=== PATIENT | female | born 1950 | race Caucasian/White ===

== ENCOUNTER 2016-08-02 09:27 | Emergency (ER) | payer MEDICARE ==
[2016-08-02 09:41] VITALS: BP 143/64
--- NOTE | 2016-08-02 10:44 | UC ---
Psychiatric Complaint HPI - HPI Summary HPI Summary: SEVER ANXIETY X 2 MONTHS , GETTING WORSE OVER THE PAST WEEK. - History Of Current Complaint Chief Complaint: UCGeneralIllness Stated Complaint: ANXIETY Time Seen by Provider: 08/02/16 09:32 Hx Obtained From: Patient Hx Last Menstrual Period: n/a Onset/Duration: Gradual Onset, Lasting Weeks - 8, Still Present Timing: Constant Severity Initially: Moderate Severity Currently: Severe Character: Depressed, Anxious Aggravating Factor(s): Recent Stress Alleviating Factor(s): Nothing Associated Signs And Symptoms: Negative Related History: Positive For: Prior Psychiatric Issues - DEPRESSION - Allergies/Home Medications Allergies/Adverse Reactions: Allergies Allergy/AdvReac Type Severity Reaction Status Date / Time Sulfamethoxazole Allergy Intermediate Hives Verified 11/24/15 18:46 w/Trimethoprim [From Bactrim] Home Medications: Home Medications Fluticasone Propionate (Nasal) [Flonase Allergy Relief] 08/02/16 [History] Multiple Vitamin [Multi Vitamin] 08/02/16 [History] traZODone TAB* [Desyrel TAB*] 08/02/16 [History] PMH/Surg Hx/FS Hx/Imm Hx Psychological History Of: Reports: Anxiety, Depression - Surgical History Surgical History: Yes Surgery Procedure, Year, and Place: LEFT 5TH FINGER SURGERY. hysterectomy/ bladder repair. tonsillectomy. tubal ligation - Family History Known Family History: Positive: None - Social History Alcohol Use: None Alcohol Amount: recovery for 21 years Substance Use Type: None Smoking Status (MU): Never Smoked Tobacco - Immunization History Most Recent Influenza Vaccination: 2014 Most Recent Pneumonia Vaccination: 2014 Review of Systems Constitutional: Negative Skin: Negative Eyes: Negative ENT: Negative Respiratory: Negative Psychological: Anxious, Depressed All Other Systems Reviewed And Are Negative: Yes Physical Exam Triage Information Reviewed: Yes Appearance: Well-Appearing, No Pain Distress, Well-Nourished Vital Signs: Initial Vital Signs Temp 98.0 F 08/02/16 09:33 Pulse 74 08/02/16 09:33 Resp 16 08/02/16 09:33 BP 143/64 08/02/16 09:33 Pulse Ox 99 08/02/16 09:33 Vital Signs Reviewed: Yes Eyes: Positive: Conjunctiva Clear ENT: Positive: Normal ENT inspection, Hearing grossly normal, Pharynx normal Neck exam: Normal Neck: Positive: Supple, Nontender, No Lymphadenopathy Respiratory Exam: Normal Respiratory: Positive: Chest non-tender, Lungs clear, Normal breath sounds, No respiratory distress Cardiovascular: Positive: RRR, No Murmur, Pulses Normal Abdominal Exam: Normal Psychological Exam: Normal Psychological: Positive: Age Appropriate Behavior Skin Exam: Normal UC Physical Exam Vital Signs On Initial Exam: Initial Vitals Temp Pulse Resp BP Pulse Ox 98.0 F 74 16 143/64 99 08/02/16 09:33 08/02/16 09:33 08/02/16 09:33 08/02/16 09:08/02/16 09:33 - Psychiatric Exam Psychiatric: Anxious, Depressed Mood: Depressed Appearance: Depressed Thought Process: Logical Memory: Intact Judgement: Normal Patient Medically Stable for Psych Evaluation/Referral/Trans: Yes Psych Complaint Course/Dx - Differential Dx/Diagnosis Provider Diagnoses: ANXIETY Discharge - Discharge Plan Condition: Stable Disposition: HOME Prescriptions: Escitalopram Oxalate [Lexapro] 10 mg PO DAILY WITH MEAL #30 tab hydrOXYzine PAMOATE CAP* [Vistaril CAP*] 25 mg PO Q8H PRN #30 cap PRN Reason: Anxiety Patient Education Materials: Anxiety (ED) Referrals: Octavia Pitts [Primary Care Provider] - As Soon As Possible
== END 2016-08-02 10:08 | disposition home or self-care (01) ==
LOC: UCCORT 09:27
DX: F41.9 Anxiety disorder, unspecified (principal); Z88.1 Allergy status to other antibiotic agents
CPT/HCPCS: 99212; G0463

== ENCOUNTER 2017-04-09 16:01 | Emergency (ER) | payer MEDICARE ==
[2017-04-09 16:42] VITALS: BP 170/76
--- NOTE | 2017-04-09 17:54 | UC ---
Upper Extremity HPI - HPI Summary HPI Summary: 66 year old female with wrist pain after fall. today at 1430, fell on floor injury to right wrist. concern for fracture [ End ] - History of Current Complaint Chief Complaint: UCUpperExtremity Stated Complaint: RIGHT WRIST,RIGHT ANKLE INJURIES Time Seen by Provider: 04/09/17 17:38 Hx Obtained From: Patient Hx Last Menstrual Period: n/a Onset/Duration: Sudden Onset Severity Initially: Moderate Aggravating Factor(s): Movement Alleviating Factor(s): Ice - Allergies/Home Medications Allergies/Adverse Reactions: Allergies Allergy/AdvReac Type Severity Reaction Status Date / Time Sulfamethoxazole Allergy Intermediate Hives Verified 04/09/17 16:42 w/Trimethoprim [From Bactrim] PMH/Surg Hx/FS Hx/Imm Hx Previously Healthy: Yes - Surgical History Surgical History: Yes Surgery Procedure, Year, and Place: LEFT 5TH FINGER SURGERY. hysterectomy/ bladder repair. tonsillectomy. tubal ligation - Family History Known Family History: Positive: None - Social History Lives: With Family Alcohol Use: None Alcohol Amount: recovery for 21 years Substance Use Type: None Smoking Status (MU): Never Smoked Tobacco - Immunization History Most Recent Influenza Vaccination: 2014 Most Recent Pneumonia Vaccination: 2014 Review of Systems Motor: Decreased ROM Musculoskeletal: Arthralgia, Decreased ROM All Other Systems Reviewed And Are Negative: Yes Physical Exam Triage Information Reviewed: Yes Appearance: No Pain Distress, Well-Nourished Vital Signs: Initial Vital Signs Temp 97.6 F 04/09/17 16:38 Pulse 65 04/09/17 16:38 Resp 17 04/09/17 16:38 BP 170/76 04/09/17 16:38 Pulse Ox 100 04/09/17 16:38 Respiratory Exam: Normal Cardiovascular Exam: Normal Musculoskeletal: Positive: ROM Limited @ - right wrist diffuse pain and over the anatomic snuff box. Neurological Exam: Normal Psychological Exam: Normal Skin Exam: Normal Upper Extremity Course/Dx - Course Course Of Treatment: non displaced fx -- placed in sugar tong splint, can move all fingers and thumb and cap refill < 3 sec. call Ortho tomorrow am for cast - Differential Dx/Diagnosis Provider Diagnoses: wrist fracture Discharge - Discharge Plan Condition: Good Disposition: HOME Patient Education Materials: Wrist Fracture in Adults (ED) Referrals: Octavia Pitts [Primary Care Provider] - Payam Garza MD [Medical Doctor] - 1 Day (Ortho referral )
[2017-04-09] MEDS ORDERED: Acetaminophen TAB* 325 MG PO ONE (17:56)
--- NOTE | 2017-04-09 18:17 | RAD ---
INDICATION: RIGHT wrist pain post fall on outstretched hand. COMPARISON: None. TECHNIQUE: AP, lateral, and oblique views RIGHT wrist. REPORT: Bone density appears decreased throughout. Transverse fracture at the distal metaphysis of the radius with mild dorsal impaction and resulting loss of the normal volar tilt of the distal radioarticular surface. Probable extension to the distal radial ulnar joint. No definitive extension to the radiocarpal joint. Associated nondisplaced ulnar styloid avulsion. Negative for dislocation. Advanced joint space narrowing at the scaphoid trapezium articulation with associated mild subchondral sclerosis. Mild osteophytosis at the basal joint of the thumb. Soft tissue swelling about the wrist most prominent over the dorsal aspect. IMPRESSION: Mildly dorsally impacted distal metaphyseal fracture of the radius with intra-articular extension. Associated ulnar styloid avulsion.
== END 2017-04-09 19:03 | disposition home or self-care (01) ==
LOC: UCCORT 16:01
DX: S62.101A Fracture of unspecified carpal bone, right wrist, initial encounter for closed fracture (principal); Z88.2 Allergy status to sulfonamides; W19.XXXA Unspecified fall, initial encounter; Y92.9 Unspecified place or not applicable
CPT/HCPCS: 99212; A9270-GY; G0463

== ENCOUNTER 2019-03-10 10:00 | Emergency (ER) | payer MEDICARE ==
[2019-03-10 10:34] VITALS: BP 149/72
--- NOTE | 2019-03-10 11:10 | UC ---
Back Pain HPI - HPI Summary HPI Summary: 68-year-old female comes in with a chief complaint of back pain. 2 days ago patient reports she was standing some would and had sudden onset of upper lumbar pain and also thoracic back pain. Pain is worse is worse with certain twisting turning bending movements. She is unable to take ibuprofen because of a history of kidney problems. She took some acetaminophen which she's not sure if it really helped. Does have a history of sciatica on the right which she does not have sciatic pain at this time. No pain going down the legs. No weakness no numbness or difficulty controlling urine or bowels. - History of Current Complaint Chief Complaint: UCBackPain Stated Complaint: LOWER BACK PAIN Time Seen by Provider: 03/10/19 10:50 Hx Last Menstrual Period: n/a Pain Intensity: 9 - Allergies/Home Medications Allergies/Adverse Reactions: Allergies Allergy/AdvReac Type Severity Reaction Status Date / Time ibuprofen Allergy See Comment Verified 03/10/19 10:30 sulfamethoxazole Allergy Hives Verified 03/10/19 10:27 [From Bactrim] trimethoprim [From Bactrim] Allergy Hives Verified 03/10/19 10:27 Home Medications: Home Medications Amoxicillin PO (*) [Amoxicillin 875 MG (*)] 875 mg PO BID 03/10/19 [History Confirmed 03/10/19] Fexofenadine (NF) [Yumiko (NF)] 60 mg PO DAILY 03/10/19 [History Confirmed ] Vit C/E/Zinc/Lutein/Zeaxanthin [[facility]] 1 tab PO DAILY [History Confirmed 03/10/19] PMH/Surg Hx/FS Hx/Imm Hx Previously Healthy: Yes - RT SCIATICA - Surgical History Surgical History: Yes Surgery Procedure, Year, and Place: LEFT 5TH FINGER SURGERY. hysterectomy/ bladder repair. tonsillectomy. tubal ligation - Family History Known Family History: Positive: None - Social History Alcohol Use: None Alcohol Amount: recovery for 25 years Substance Use Type: None Smoking Status (MU): Never Smoked Tobacco - Immunization History Most Recent Influenza Vaccination: 2014 Most Recent Pneumonia Vaccination: 2014 Review of Systems All Other Systems Reviewed And Are Negative: Yes Constitutional: Positive: Negative Skin: Positive: Negative Eyes: Positive: Negative ENT: Positive: Negative Respiratory: Positive: Negative Cardiovascular: Positive: Negative Gastrointestinal: Positive: Negative Genitourinary: Positive: Negative Motor: Positive: Other - SEE HPI Neurovascular: Positive: Negative Musculoskeletal: Positive: Other: - SEE HPI Neurological: Positive: Negative Psychological: Positive: Negative Is Patient Immunocompromised?: No Physical Exam Triage Information Reviewed: Yes Appearance: Well-Appearing, Well-Nourished, Pain Distress - MILD WITH ROM Vital Signs: Initial Vital Signs Temp 97.8 F 03/10/19 10:28 Pulse 67 03/10/19 10:28 Resp 16 03/10/19 10:28 BP 149/72 03/10/19 10:28 Pulse Ox 98 03/10/19 10:28 Vital Signs Reviewed: Yes Eye Exam: Normal Eyes: Positive: Conjunctiva Clear Neck: Positive: Supple, Nontender Respiratory: Positive: No respiratory distress Musculoskeletal: Positive: Other: - Tender to palpation mid upper lumbar spine and also over the thoracic spine up to approximately T3. Lower extremities have full strength full range of motion no sensation deficits. Neurological: Positive: Alert Psychological: Positive: Age Appropriate Behavior Skin Exam: Normal Back Pain Course/Dx - Course Course Of Treatment: No focal neurologic deficit. Patient is not able take NSAIDs. Patient's can and do range of motion she does yoga. We discussed using a lidocaine patch. A prescription for tramadol and Flexeril to be used as needed. Follow-up her primary care doctor or sports medicine. Reevaluate sooner if worse or questions or concerns. - Differential Dx/Diagnosis Provider Diagnosis: Lumbar back pain, Thoracic back pain Discharge ED - Sign-Out/Discharge Documenting (check all that apply): Patient Departure All imaging exams completed and their final reports reviewed: No Studies - Discharge Plan Condition: Stable Disposition: HOME Prescriptions: Cyclobenzaprine TAB* [Flexeril 10 MG TAB*] 10 mg PO TID PRN #15 tab MDD 3 PRN Reason: Pain - Moderate traMADol TAB* [Ultram*] 50 mg PO Q6HR PRN #20 tab MDD 4 PRN Reason: Pain - Moderate Patient Education Materials: Acute Low Back Pain (ED), Lower Back Exercises (ED ), Thoracic Back Strain (ED) Forms: *Work Release Referrals: Octavia Pitts [Primary Care Provider] - [facility] [Provider Group] Additional Instructions: FOLLOW UP WITH YOUR DOCTOR IF NOT COMPLETELY IMPROVED. GET REEVALUATED SOONER IF WORSE; PAIN, WEAKNESS, NUMBNESS, DIFFICULTY CONTROLLING BOWEL OR BLADDER OR ANY QUESTIONS OR CONCERNS. - Billing Disposition and Condition Condition: STABLE Disposition: Home
== END 2019-03-10 11:20 | disposition home or self-care (01) ==
LOC: UCCORT 10:00
DX: M54.5 Low back pain (principal); M54.6 Pain in thoracic spine
CPT/HCPCS: 99212; G0463